=== PATIENT | female | born 1990 | race Caucasian/White ===

== ENCOUNTER 2024-03-05 02:15 | Emergency (ER) | payer BC, OTHER ==
[~2024-03-05] VITALS: Ht 165.1 cm; Wt 90.7 kg
[2024-03-05 02:22] VITALS: BP 126/89; PULSE 54; RESP 16; TEMP 97.9; O2SAT 100
[2024-03-05 03:00] VITALS: O2SAT 100
[2024-03-05 03:26] LABS: BLOOD GAS BASE EXCESS -3.9 mmol/L (-2.0-3.0); BLOOD GAS HCO3 18.1 mmol/L (21.0-28.0); BLOOD GAS PCO2 25.6 mmHg (32.0-45.0); BLOOD GAS PH 7.467 (7.350-7.450)
[2024-03-05 03:27] LABS: BLOOD GAS O2 SAT% 98.3 % (94.0-98.0)
[2024-03-05 04:35] VITALS: BP 126/89; PULSE 54; RESP 16; TEMP 97.9; O2SAT 100
== END 2024-03-05 03:35 | disposition home or self-care (01) ==
LOC: MED 02:15
DX: Z57.5 Occupational exposure to toxic agents in other industries (principal)
CPT/HCPCS: 36600; 82803; 99283